=== PATIENT | female | born 1985 | race Caucasian/White ===

== ENCOUNTER 2019-09-22 07:40 | Outpatient (CLI) | payer OTHER | END 2019-09-22 07:47 | disposition home or self-care (01) | LOC: SONOGRAMA 07:40 | DX: E05.90 Thyrotoxicosis, unspecified without thyrotoxic crisis or storm (principal) ==

== ENCOUNTER 2019-09-23 08:27 | Outpatient (CLI) | payer OTHER | END 2019-09-23 10:22 | disposition home or self-care (01) | LOC: NUCLEAR 08:27 | DX: E05.90 Thyrotoxicosis, unspecified without thyrotoxic crisis or storm (principal) | CPT/HCPCS: 78012; A9531 ==

== ENCOUNTER 2020-01-21 12:37 | Outpatient (CLI) | payer OTHER | END 2020-01-21 12:47 | disposition home or self-care (01) | LOC: NUCLEAR 12:37 | PROVIDERS: ATTEND Internal Medicine Sports Medicine | DX: E04.1 Nontoxic single thyroid nodule (principal); E05.80 Other thyrotoxicosis without thyrotoxic crisis or storm | CPT/HCPCS: 79005; A9517 ==